=== PATIENT | female | born 1955 | race African-American/Black ===

== ENCOUNTER 2018-03-07 07:10 | Day surgery (SDC) | payer OTHER ==
[2018-03-07] MEDS ORDERED: PROPOFOL 20 ML (09:18)
[2018-03-07] MEDS ORDERED: LIDOCAINE 2% (SDV) 5 ML INJ (09:18)
[2018-03-07] MEDS ORDERED: CEFAZOLIN 1 GM INJ (09:18)
[2018-03-07] MEDS ORDERED: ONDANSETRON 4 MG INJ (09:19)
[2018-03-07] MEDS ORDERED: MEPERIDINE 100 MG INJ (09:19)
[2018-03-07] MEDS ORDERED: METOCLOPRAMIDE 10 MG INJ (09:19)
[2018-03-07] MEDS: SODIUM CL BACTERIOSTATIC 30 ML INJ INJ ×2 (09:50→10:47)
[2018-03-07] MEDS: EPINEPHrine 1 MG/ML 30 ML INJ IRR (09:51)
[2018-03-07] MEDS ORDERED: FENTAnyl 50 MCG/ML VIAL IV ×2 (10:30)
[2018-03-07] MEDS ORDERED: OXYCODONE/ACETAMINOPHEN (5/325) TAB PO ×2 (10:30)
[2018-03-07] MEDS ORDERED: MIDAZOLAM 1 MG/ML 2 ML INJ IV (10:30)
[2018-03-07] MEDS ORDERED: DIPHENHYDRAMINE 50 MG INJ IV (10:30)
[2018-03-07] MEDS ORDERED: METOCLOPRAMIDE 10 MG INJ IV (10:30)
[2018-03-07] MEDS: EPINEPHrine 1 MG INJ (10:47)
[2018-03-07] MEDS: morphine SULFATE/PF (10 MG/10 ML) INJ (10:47)
[2018-03-07] MEDS ORDERED: HYDROCODONE/APAP (5/325) TAB PO (11:00)
[2018-03-07] MEDS: ONDANSETRON 4 MG INJ IV (11:06)
[2018-03-07] MEDS: MEPERIDINE 25 MG INJ IV (11:07)
[2018-03-07] MEDS: FENTAnyl 50 MCG/ML VIAL IV ×3 (11:08→11:47)
[2018-03-07] MEDS: HYDROCODONE/APAP (5/325) TAB PO (11:43)
== END 2018-03-07 13:10 | disposition home or self-care (01) ==
LOC: SDS 07:10
DX: S83.281A Other tear of lateral meniscus, current injury, right knee, initial encounter (principal); S83.241A Other tear of medial meniscus, current injury, right knee, initial encounter; M67.51 Plica syndrome, right knee; X58.XXXA Exposure to other specified factors, initial encounter; Y93.89 Activity, other specified; Y92.89 Other specified places as the place of occurrence of the external cause; Y99.8 Other external cause status
CPT/HCPCS: 29882